=== PATIENT | male | born 1975 ===

== ENCOUNTER → 2021-10-29 | Outpatient (REF) ==
--- NOTE | 2021-10-29 16:07 | REP ---
INDICATION: ARTHIRITIS COMPARISON: None. TECHNIQUE: Internal rotation, external rotation, and Y view. FINDINGS: The acromioclavicular joint and glenohumeral joints appear relatively intact and age-appropriate. No overt arthritic changes are appreciated. No periarticular calcifications or loose bodies are identified. The subacromial space is within normal limits. There appears to be a nonacute fracture involving the mid clavicular shaft and suspected nonacute right rib fractures. Correlation is required. IMPRESSION: Acromioclavicular and glenohumeral joints appear essentially age-appropriate. Right clavicle and right rib fractures are likely nonacute. <Electronically signed by Saúl Vivar > 10/29/21 1703
--- NOTE | 2021-10-29 16:08 | REP ---
INDICATION: ARTHRITIS COMPARISON: Two views of the right clavicle TECHNIQUE: PA and lateral. FINDINGS: There appears to be an old healed midclavicular shaft fracture. The acromioclavicular joint and sternoclavicular joints appear intact and normal. IMPRESSION: 1. Old healed midclavicular shaft fracture. <Electronically signed by Saúl Vivar > 10/29/21 [id number]
--- NOTE | 2021-10-29 16:10 | REP ---
INDICATION: ARTHIRITIS COMPARISON: None. TECHNIQUE: AP, lateral, bilateral oblique and sunrise views right and left knee. FINDINGS: Osseous structures, joint spaces, and surrounding soft tissues are essentially symmetric and relatively age-appropriate. No overt osteoarthritic changes are identified. [place] views demonstrate mild symmetric sclerosis to the anterior patellar margins. There is no evidence for obvious acute or healed injury. No obvious effusion. IMPRESSION: Bilateral symmetric age-related changes. No overt significant osteoarthritic findings. <Electronically signed by Saúl Vivar > 10/29/21 [id number]
--- NOTE | 2021-10-29 16:12 | REP ---
INDICATION: ARTHIRITIS COMPARISON: None. TECHNIQUE: AP, lateral, coned-down views of the lumbar spine. FINDINGS: Alignment and lordosis maintained. There is no evidence for acute fracture/compression injury or subluxation. Relatively mild/early-moderate multilevel degenerative changes include endplate sclerosis with very subtle marginal spurring and minimal disc space narrowing. Mild facet hypertrophy at L5-S1 is also suggested. Incidental nonobstructing right renal calculi. IMPRESSION: [id number] nonspecific multilevel degenerative changes. <Electronically signed by Saúl Vivar > 10/29/21 [id number]
== END ==
LOC: M PLAIMG 14:27
PROVIDERS: ATTEND Internal Medicine
DX: M25.511 Pain in right shoulder (principal); M25.562 Pain in left knee; M54.50 Low back pain, unspecified